=== PATIENT | male | born 1950 | race Caucasian/White ===

== ENCOUNTER → 2017-04-24 | Outpatient (CLI) | payer MEDICARE, OTHER | END | disposition home or self-care (01) | LOC: PCVCCLINIC 12:31 | PROVIDERS: ATTEND Internal Medicine Cardiovascular Disease | DX: I10 Essential (primary) hypertension (principal); R07.89 Other chest pain; E78.00 Pure hypercholesterolemia, unspecified; F17.200 Nicotine dependence, unspecified, uncomplicated; Z79.82 Long term (current) use of aspirin; Z79.01 Long term (current) use of anticoagulants; Z79.899 Other long term (current) drug therapy | CPT/HCPCS: 93005; G0463 ==

== ENCOUNTER → 2018-05-04 | Outpatient (CLI) | payer MEDICARE, OTHER | END | disposition home or self-care (01) | LOC: PCVCCLINIC 11:35 | PROVIDERS: ATTEND Internal Medicine Cardiovascular Disease | DX: I10 Essential (primary) hypertension (principal); E78.00 Pure hypercholesterolemia, unspecified; R06.09 Other forms of dyspnea; R60.9 Edema, unspecified; Z88.8 Allergy status to other drugs, medicaments and biological substances; Z79.899 Other long term (current) drug therapy; Z79.82 Long term (current) use of aspirin; Z79.84 Long term (current) use of oral hypoglycemic drugs; Z87.891 Personal history of nicotine dependence | CPT/HCPCS: 93005; G0463 ==

== ENCOUNTER → 2019-05-18 | Outpatient (CLI) | payer MEDICARE, OTHER ==
--- NOTE | 2019-05-18 09:44 | PCVCIMAG ---
APPROVED REPORT Study performed: 05/18/2019 09:04:10 EXAM: Comprehensive 2D, Doppler, and color-flow Echocardiogram Patient Location: Echo lab Status: routine BSA: 2.42 HR: 61 bpmBP: 144/80 mmHg Rhythm: NSR Other Information Study Quality: Technically Difficult Risk Factors: Cardiac Risk Factors: HTN, Hyperlipidemia Indications COPD Dyspnea ZOE 2D Dimensions IVSd: 11.73 (7-11mm)LVOT Diam: 22.19 (18-24mm) LVDd: 42.72 mm PWd: 9.83 (7-11mm)Ascending Ao: 38.95 (22-36mm) LVDs: 33.65 (25-40mm) Left Atrium: 43.27 (27-40mm) Aortic Root: 32.09 mm LV Single Plane 4CH: 56.31 % LV Single Plane 2CH: 55.23 % Biplane EF: 55.8 % Volumes Left Atrial Volume (Systole) Single Plane 4CH: 64.74 mLSingle Plane 2CH: 56.91 mL LA ESV Index: 25.00 mL/m2 Aortic Valve AoV Peak Good.: 1.52 m/s AO Peak Gr.: 9.21 mmHgLVOT Max P.24 mmHg LVOT Max V: 1.03 m/s MARYSOL Vmax: 2.62 cm2 Mitral Valve E/A Ratio: 0.9 MV Decel. Time: 206.75 ms MV E Max Good.: 0.74 m/s MV A Good.: 0.79 m/s TDI E/Lateral E': 7.40E/Medial E': 14.80 Medial E' Good.: 0.05 m/s Lateral E' Good.: 0.10 m/s Pulmonary Valve PV Peak Gr.: 1.82 mmHg Pulmonary Vein P Vein S: 0.76 m/sP Vein A: 0.39 m/s P Vein D: 0.53 m/sP Vein A Dur.: 141.9 msec P Vein S/D Ratio: 1.43 Tricuspid Valve TR Peak Good.: 1.74 m/s TR Peak Gr.: 12.14 mmHg Left Ventricle The left ventricle is normal size. There is normal LV segmental wall motion. There is normal left ventricular wall thickness. Left ventricular systolic function is normal. The left ventricular ejection fraction is within the normal range. LVEF is >55%. Grade I - abnormal relaxation pattern. Right Ventricle The right ventricle is normal size. The right ventricular systolic function is normal. Atria The left atrium size is normal. The right atrium size is normal. Aortic Valve The aortic valve is normal in structure. No aortic regurgitation is present. There is no aortic valvular stenosis. Mitral Valve Mild mitral annular calcification. There is no mitral valve regurgitation noted. No evidence of mitral valve stenosis. Tricuspid Valve The tricuspid valve is normal in structure. Trace tricuspid regurgitation. Pulmonic Valve The pulmonary valve is normal in structure. There is no pulmonic valvular regurgitation. Great Vessels The aortic root is normal in size. IVC is normal in size and collapses >50% with inspiration. Pericardium There is no pericardial effusion. <Conclusion> The left ventricle is normal size. There is normal left ventricular wall thickness. Left ventricular systolic function is normal. Grade I - abnormal relaxation pattern. The right ventricle is normal size. The left atrium size is normal. The aortic valve is normal in structure. Mild mitral annular calcification. Trace tricuspid regurgitation.
== END | disposition home or self-care (01) ==
LOC: PCVCIMAG 09:07
PROVIDERS: ATTEND Internal Medicine Cardiovascular Disease
DX: I34.8 Other nonrheumatic mitral valve disorders (principal); J44.9 Chronic obstructive pulmonary disease, unspecified; G47.33 Obstructive sleep apnea (adult) (pediatric); I10 Essential (primary) hypertension; E78.00 Pure hypercholesterolemia, unspecified; R60.9 Edema, unspecified; I25.10 Atherosclerotic heart disease of native coronary artery without angina pectoris; E11.29 Type 2 diabetes mellitus with other diabetic kidney complication; E24.9 Cushing's syndrome, unspecified; R07.9 Chest pain, unspecified; Z91.048 Other nonmedicinal substance allergy status; Z79.82 Long term (current) use of aspirin; Z79.899 Other long term (current) drug therapy; Z87.891 Personal history of nicotine dependence; Z99.89 Dependence on other enabling machines and devices
CPT/HCPCS: 93005; 93306; G0463